=== PATIENT | female | born 1990 ===

== ENCOUNTER 2022-02-28 20:25 | Inpatient (IN) ==
[~2022-02-28 20:25] MED LIST: *HR* Nalbuphine 10 MG/ML AMPUL IV PRN; Famotidine 20 MG/2 ML VIAL IVP PRN; Metoclopramide 10 MG/2 ML VIAL IVP PRN; Naloxone 0.4 MG/ML INJ IVP PRN
[2022-02-28] MEDS ORDERED: Ringers Solution, Lactated 1,000 ML IVC SCH (20:30)
[2022-02-28] MEDS ORDERED: Lidocaine 1% 20 ML MDV INFILT PRN (20:34)
[2022-02-28 21:04] LABS: Basophils # 0.1 K/mcL (0.0-0.2); Basophils % 0.4 %; Eosinophils # 0.2 K/mcL (0.0-0.6); Eosinophils % 1.6 %; Hematocrit 36.7 % (35.3-44.9); Hemoglobin 12.5 g/dL (11.5-15.4); Immature Granulocytes % 1.2 % (0-4); Lymphocytes # 2.2 K/mcL (0.6-4.6); Mean Corpuscular HGB Conc 34.1 g/dL (31.6-35.5); Mean Corpuscular Hemoglobin 29.3 pg (28.0-33.3); Mean Corpuscular Volume 85.9 fL (83.0-100.0); Mean Platelet Volume 12.6 fL (9.4-12.4); Monocytes % 7.5 %; Neutrophils # 10.1 K/mcL (1.6-8.9); Platelet Count 227 K/mcL (140-400); Red Blood Count 4.27 M/mcL (3.82-4.97); Red Cell Distribution Width 13.1 % (11.5-14.5); Segmented Neutrophils % 73.3 %; White Blood Count 13.8 K/mcL (4.3-11.1)
[2022-02-28 21:24] LABS: Alanine Aminotransferase 15 Units/L (7-52); Aspartate Amino Transferase 19 Units/L (13-39); BUN/Creatinine Ratio 13 (6-26); Blood Urea Nitrogen 10 mg/dL (6-20); Lactate Dehydrogenase 159 Units/L (140-271); eGFR For African Americans > 60 (> 60); eGFR For Non-African Americans > 60 (> 60)
[2022-02-28 21:40] LABS: Amphetamine Screen,Urine Negative ng/mL (Cutoff=1000); Barbiturate Screen,Urine Negative ng/mL (Cutoff=200); Benzodiazepines Screen,Urine Negative ng/mL (Cutoff=200); Cannabinoid Screen,Urine Negative ng/mL (Cutoff = 50); Cocaine Screen,Urine Negative ng/mL (Cutoff= 300); Opiate Screen,Urine Negative ng/mL (Cutoff=300); Phencyclidine Screen,Urine Negative ng/mL (Cutoff=25)
[2022-03-01] MEDS ORDERED: Ibuprofen 600 MG TABLET PO STA (01:04)
[2022-03-01] MEDS ORDERED: Benzocaine/Menthol 56 GM AEROSOL SPRAY TP PRN ×2 (01:06→03:55)
[2022-03-01] MEDS ORDERED: Lanolin 7 G OINT...G. TP PRN ×2 (01:06→03:55)
[2022-03-01] MEDS ORDERED: Measles/Mumps/Rubella Vacc 0.5 ML VIAL SQ PRN ×2 (01:06→03:55)
[2022-03-01] MEDS ORDERED: Rho Immune Globulin 1,500 UNIT SYRINGE IM PRN ×2 (01:06→03:55)
[2022-03-01] MEDS ORDERED: Ondansetron ODT 4 MG TAB.RAPDIS SL PRN ×2 (01:06→03:55)
[2022-03-01] MEDS ORDERED: Acetaminophen 325 MG TABLET PO SCH (01:15)
[2022-03-01] MEDS ORDERED: Famotidine 20 MG/2 ML VIAL IVP PRN (03:55)
[2022-03-01] MEDS ORDERED: Naloxone 0.4 MG/ML INJ IVP PRN (03:55)
[2022-03-01] MEDS ORDERED: *HR* Nalbuphine 10 MG/ML AMPUL IV PRN (03:55)
[2022-03-01] MEDS ORDERED: Metoclopramide 10 MG/2 ML VIAL IVP PRN (03:55)
[2022-03-01] MEDS ORDERED: Ringers Solution, Lactated 1,000 ML IVC SCH (03:55)
[2022-03-01] MEDS ORDERED: Ibuprofen 600 MG TABLET PO SCH (04:06)
[2022-03-01] MEDS: Acetaminophen 325 MG TABLET PO SCH ×4 (05:53→23:28)
[2022-03-01] MEDS ORDERED: Prenatal Vit/FA 1 EACH TABLET PO SCH (09:00)
[2022-03-01] MEDS: Prenatal Vit/FA 1 EACH TABLET PO SCH (09:00)
[2022-03-01] MEDS: Ibuprofen 600 MG TABLET PO SCH ×4 (09:00→21:17)
[2022-03-01 21:35] VITALS: TEMP 98.5; O2SAT 99
[2022-03-02 07:00] VITALS: BP 119/76; PULSE 98
[2022-03-02] MEDS: Ibuprofen 600 MG TABLET PO SCH (08:33)
[2022-03-02] MEDS: Acetaminophen 325 MG TABLET PO SCH (08:33)
[2022-03-02] MEDS: Prenatal Vit/FA 1 EACH TABLET PO SCH (08:33)
== END 2022-03-02 14:00 | disposition home or self-care (01) | DRG 768 ==
LOC: 1NENULAB → 1NENUOBS 03-01 03:31
PROVIDERS: ADMIT Advanced Practice Midwife; ATTEND Advanced Practice Midwife